=== PATIENT | male | born 1945 | race Hispanic/Latino ===

== ENCOUNTER 2017-09-02 09:24 | Emergency (ER) | payer MEDICARE, OTHER ==
[2017-09-02] MEDS ORDERED: ACETAMINOPHEN 325 MG TAB ONE (09:40)
[2017-09-02] MEDS ORDERED: CYCLOBENZAPRINE HCL 10 MG TABLET ONE (09:40)
[2017-09-02] MEDS ORDERED: KETOROLAC TROMETHAMINE 30MG/ML ONE (11:44)
== END 2017-09-02 12:31 | disposition home or self-care (01) ==
LOC: EDH 09:24
DX: G44.209 Tension-type headache, unspecified, not intractable (principal); R25.2 Cramp and spasm; I10 Essential (primary) hypertension; I25.10 Atherosclerotic heart disease of native coronary artery without angina pectoris; Z87.891 Personal history of nicotine dependence
CPT/HCPCS: 70544; 70551; 96372; 99284; J1885

== ENCOUNTER 2018-06-04 06:23 | Emergency (ER) | payer OTHER ==
[2018-06-04 06:52] LABS: BASOPHILS % (AUTO) 0.7 % (0.0-5.0); EOSINOPHILS % (AUTO) 2.2 % (0.0-8.0); HEMATOCRIT 42.1 % (42-54); LYMPHOCYTES % (AUTO) 37.9 % (21.0-51.0); MEAN CORPUSCULAR HEMOGLOBIN 31.5 pg (27.0-33.0); MEAN CORPUSCULAR VOLUME 92.8 fL (79-99); MONOCYTES % (AUTO) 9.4 % (3.0-13.0); NEUTROPHILS % (AUTO) 49.8 % (40.0-77.0); NUCLEATED RED BLOOD CELLS 0.1 % (0.0-0.19); PLATELET COUNT (AUTO) 238 K/uL (130-400); RED BLOOD CELL COUNT(AUTO) 4.54 MIL/uL (4.50-6.20); RED CELL DISTRIBUTION WIDTH 14.2 % (11.0-15.5); WHITE BLOOD COUNT (AUTO) 6.9 K/uL (4.8-10.8)
[2018-06-04 06:59] LABS: CREATININE 0.8 mg/dL (0.5-1.5); POTASSIUM 4.1 mmol/L (3.5-5.1)
[2018-06-04 07:06] LABS: ALBUMIN 3.5 g/dL (3.5-5.0); BILIRUBIN,TOTAL 0.5 mg/dL (0.2-1.0); TOTAL PROTEIN, SERUM 7.1 g/dL (6.0-8.3)
[2018-06-04 07:10] LABS: CREATINE KINASE, TOTAL 224 U/L (21-232); MYOGLOBIN 71 ng/mL (10-92); TROPONIN I < 0.04 ng/mL (0.00-0.06)
[2018-06-04] MEDS ORDERED: SODIUM CHLORIDE 0.9% 1000ML 1,000 ML IV ONE (07:27)
[2018-06-04] MEDS ORDERED: MORPHINE SULFATE 2 MG/ML 1ML SYG ONE (08:02)
[2018-06-04] MEDS ORDERED: ONDANSETRON HCL 4 MG/2 ML VIAL ONE (08:02)
[2018-06-04] MEDS ORDERED: KETOROLAC TROMETHAMINE 15MG/ML ONE (09:27)
[2018-06-04] MEDS ORDERED: METHYLPREDNISOLONE SOD SUCC 125MG/2ML VIAL ONE (09:27)
== END 2018-06-04 10:45 | disposition home or self-care (01) ==
LOC: EDH 06:23
DX: R42 Dizziness and giddiness (principal); R51 Headache; M54.2 Cervicalgia; I25.10 Atherosclerotic heart disease of native coronary artery without angina pectoris; I10 Essential (primary) hypertension; E11.9 Type 2 diabetes mellitus without complications
CPT/HCPCS: 36415; 70450; 80053; 82550; 83874; 84484; 85025; 93005; 96361; 96374; 96375; 99285; J1885; J2405; J2930; J7030

== ENCOUNTER → 2022-12-23 | Outpatient (CLI) | payer OTHER ==
[~2022-12-23] MED LIST: IOHEXOL 350 MG/ML 100ML INFUS..BTL IV ONE
== END | disposition home or self-care (01) ==
LOC: RAH 10:00
PROVIDERS: ATTEND Urology
DX: N20.0 Calculus of kidney (principal); R31.29 Other microscopic hematuria; Z98.890 Other specified postprocedural states
CPT/HCPCS: 74178; Q9967 ×2

== ENCOUNTER → 2023-01-11 | Outpatient (CLI) | payer OTHER | END | disposition home or self-care (01) | LOC: RAH 08:56 | PROVIDERS: ATTEND Urology | DX: N20.0 Calculus of kidney (principal) | CPT/HCPCS: 74018; 76100 ==

== ENCOUNTER 2025-07-06 12:31 | Emergency (ER) | payer OTHER ==
[~2025-07-06] VITALS: Ht 167.6 cm; Wt 102.1 kg
[~2025-07-06 12:31] MED LIST changes: +ASPI-1026 PO; -IOHEXOL 350 MG/ML 100ML INFUS..BTL IV ONE; +LISI1TAB49 PO; +Psyllium Seed PO; +ROSU5TAB51 PO; +TAMS-55 PO; +TRAZ-253 PO
[2025-07-06 13:03] LABS: IMMATURE GRANULOCYTE ABSOLUTE 0.02 K/uL (0-1); NUCLEATED RED BLOOD CELLS 0.0 % (0.0-0.19); PLATELET COUNT (AUTO) 196 K/uL (130-400); RED BLOOD CELL COUNT(AUTO) 4.65 MIL/uL (4.50-6.20); RED CELL DISTRIBUTION WIDTH 14.5 % (11.0-15.5); WHITE BLOOD COUNT (AUTO) 8.8 K/uL (4.8-10.8)
[2025-07-06 13:09] LABS: CREATININE 0.8 mg/dL (0.5-1.3); GLOMERULAR FILTR. RATE CALC 89.0 mL/min (>90); GLUCOSE,RANDOM 203.0 mg/dL (70-105); SODIUM SERUM 137.0 mmol/L (136-145); UREA NITROGEN, BLOOD 19.0 mg/dL (7-18)
--- NOTE | 2025-07-06 13:41 | ERN ---
General Chief Complaint: Other Problems Stated Complaint: LUMP LT FACE Time Seen by MD: 12:33 Source: patient History of Present Illness Initial Comments Patient is a an 80-year-old male coming in to be evaluated for multiple complaints. Patient noticed that he had a swelling in the left side of the cheek long with the as he states he felt tingling in his both hands. The ting ling then converted to itchiness. Allergies: Coded Allergies: No Known Drug Allergies (Unverified Allergy, Unknown, 06/23/16) Home Meds Active Scripts [Psyllium Seed] 1 TBS/PACKET PACKET No Conflict Check, 1 TBS PO DAILYLUNCH, #30 PACKET 0 Refills Prov:RON SALES 04/17/23 Trazodone HCl (Desyrel) 50 Mg Tab, 25 MG PO HS PRN for INSOMNIA/SLEEP, #30 TAB Prov:RON SALES 04/17/23 Aspirin (Aspirin) 325 Mg Tablet, 325 MG PO DAILY, #30 TAB Prov:RON SALES 04/17/23 Reported Medications Lisinopril/Hydrochlorothiazide (Lisinopril-Hctz 10-12.5 mg Tab) 1 Each Tablet, 1 TAB PO BID 04/16/23 Rosuvastatin Calcium (Rosuvastatin Calcium) 5 Mg Tablet, 1 TAB PO DAILY 04/16/23 Tamsulosin HCl (Flomax) 0.4 Mg Cap.er.24h, 1 CAP PO HS 04/16/23 Past Medical History Past Medical History: High Cholesterol, Hypertension Past Surgical History: None Social History Social History: Negative, Lives with family ROS Dictation CONSTITUTIONAL: No chills, no fever, no weakness, no diaphoresis, no malaise. HEAD/FACE: No signs of trauma. Left side swelling EENT: No eye pain, no blurred vision, no tearing, no double vision, no ear pain, no ear discharge, no nose pain, no nasal congestion, no throat pain, no throat swelling, no mouth pain. RESPIRATORY: No cough, no orthopnea, no SOB, no stridor, no wheezing. CARDIOVASCULAR: No chest pain, no edema, no palpitations, no syncope. GASTROINTESTINAL/ABDOMINAL: No abdominal pain, no constipation, no diarrhea, no nausea, no vomiting. GENITOURINARY: No abnormal discharge, no dysuria, no frequent urination, no hematuria. No complaints of pain in the genitals. MUSCULOSKELETAL: No back pain, no gout, no joint pain, no joint swelling, no muscle pain, no muscle stiffness, no neck pain. INTEGUMENTARY: No change in color, no change in hair/nails, no dryness, no lesion, no lumps, no rash. NEUROLOGICAL/PSYCH: No anxiety, not depressed, no emotional problem, no headache, no numbness, no pre-existing deficit, no history of seizures, no tremors, no weakness. HEMATOLOGIC/LYMPHATIC: Not anemic, no history of blood clots, no apparent bleeding, no bruising, glands not swollen. All Systems Negative, Except as Noted. Physical Exam Physical Exam Dictation VITAL SIGNS: Reviewed. GENERAL APPEARANCE: Alert, oriented x3, no acute distress, obese. HEAD AND FACE: Non-traumatic. Left parotid gland swelling EYES: PERRL, pink conjunctivas, eyelid no trauma, anterior chamber clear. EARS: Pinnas intact and no signs of trauma or erythema. Ear canals clear and no discharge. TMs no erythema. NOSE: No discharge, no bleeding. OROPHARYNX: Mouth normal, teeth no caries, tongue pink. Pharynx clear, no erythema. Tonsils no exudates, no abscesses noted. Mucous membrane moist. NECK: Supple, non-tender, no thyromegaly, no masses, no JVD, no bruits. BREAST: Deferred. CHEST: No tenderness, no crepitus, no paradoxical movement, no retractions. LUNGS: Clear, well-ventilated, symmetric, no rales, no wheezing, no rhonchi, no stridor, good breath sounds bilaterally. HEART: Regular rate, regular rhythm, no murmur, no gallops. VASCULAR: No peripheral edema. ABDOMEN: Soft, positive bowel sounds, nondistended, no guarding, nontender, no rebound, no masses no hepatomegaly, no splenomegaly, no Waters's sign, no hernias. RECTAL: Deferred. GENITAL: Deferred. NEUROLOGICAL: Normal speech, gross motor function intact, gross sensory function intact. MUSCULOSKELETAL: Neck nontender, full range of motion, back nontender, full range of motion. EXTREMITIES: Nontender, full range of motion. SKIN: Color pink, dry, no turgor, no rash, no lacerations, no abrasions, no contusions. LYMPHATICS: Deferred. Results Laboratory and Microbiology Lab and Micro Result Laboratory Tests Test 07/06/25 12:54 White Blood Count 8.8 K/uL (4.8-10.8) Red Blood Count 4.65 MIL/uL (4.50-6.20) Hemoglobin 14.2 g/dL (14.0-18.0) Hematocrit 43.5 % (42-54) Mean Corpuscular Volume 93.5 fL (79-99) Mean Corpuscular Hemoglobin 30.5 pg (27.0-33.0) Mean Corpuscular Hemoglobin Concent 32.6 g/dL (32.0-36.0) Red Cell Distribution Width 14.5 % (11.0-15.5) Platelet Count 196 K/uL (130-400) Mean Platelet Volume 11.1 fL (7.5-10.5) H Immature Granulocyte % (Auto) 0.2 % (0-1) Neutrophils (%) (Auto) 66.9 % (40.0-77.0) Lymphocytes (%) (Auto) 22.2 % (21.0-51.0) Monocytes (%) (Auto) 8.8 % (3.0-13.0) Eosinophils (%) (Auto) 1.6 % (0.0-8.0) Basophils (%) (Auto) 0.3 % (0.0-5.0) Neutrophils # (Auto) 5.9 K/uL (1.8-7.7) Lymphocytes # (Auto) 2.0 K/uL (1.0-4.8) Monocytes # (Auto) 0.8 K/uL (0.1-1.0) Eosinophils # (Auto) 0.14 K/uL (0.00-0.70) Basophils # (Auto) 0.03 K/uL (0.00-0.20) Absolute Immature Granulocyte (auto 0.02 K/uL (0-1) Nucleated Red Blood Cells 0.0 % (0.0-0.19) Sodium Level 137 mmol/L (136-145) Potassium Level 4.1 mmol/L (3.5-5.1) Chloride Level 103 mmol/L (101-111) Carbon Dioxide Level 28 mmol/L (21-32) Blood Urea Nitrogen 19 mg/dL (7-18) H Creatinine 0.8 mg/dL (0.5-1.3) Glomerular Filtration Rate Calc 89 mL/min (>90) Random Glucose 203 mg/dL (70-105) H Total Calcium 9.3 mg/dL (8.5-10.1) Labs Reviewed?: Yes MDM MDM: Differential diagnosis: Mumps, left facial swelling, lymphangitis, Rationale: Tests considered and ordered secondary to shared decision making include: Previous outside records reviewed: Old ER visits. Risk of complication and/or morbidity or mortality of patient management: None Medications-Per medication reconciliation Need for hospitalization: Patient does not meet criteria for hospitalization. Need for emergency major/minor surgery: No There are no social concerns with this patient. Patient is a an 8-year-old gentleman coming in complaining of arm burning. Glucose elevated. Patient will be diagnosed with a diabetic neuropathy as well as left-sided mumps. Mumps antibodies we will be sent. Patient was educated on proper follow up with the PCP for ongoing evaluation and management. ED Course Orders Procedure Category Date Status Time Cbc With Differential LAB 07/06/25 Complete 12:47 Basic Metabolic Panel LAB 07/06/25 Complete 12:47 Us Soft Tissue Head US 07/06/25 Taken 12:47 Mumps Virus Igm LAB 07/06/25 Verified Antibody 13:56 Mumps Virus Igg LAB 07/06/25 Verified Antibody 13:56 Vital Signs Date Time Temp Pulse Resp B/P (MAP) Pulse Ox O2 Delivery O2 Flow Rate FiO2 07/06/25 12:33 98.1 74 18 143/96 97 DX & DISP Disposition: Discharge Departure Impression: Primary Impression: Diabetic neuropathy Additional Impression: Lymphangitis Condition: Stable Additional Instructions: FOLLOW-UP WITH PRIMARY CARE PROVIDER IN 1 TO 2 DAYS. TAKE MEDICATIONS DIRECTED HERE IN THE EMERGENCY ROOM. OKAY TO CONTINUE HOME MEDICATIONS UNLESS OTHERWISE DISCUSSED DURING YOUR VISIT IN THE EMERGENCY ROOM TODAY. RETURN TO YOUR NEAREST EMERGENCY ROOM IF SYMPTOMS WORSEN OR IF THERE IS NO IMPROVEMENT. CALL 911 IF YOU NEED IMMEDIATE ASSISTANCE. TAKE TYLENOL [id number] NEEDED AND IF NO CONTRAINDICATIONS ARE PRESENT. INCREASE ORAL HYDRATION. A WOUND CULTURE OR URINE CULTURE WAS ORDERED HERE IN THE EMERGENCY ROOM DEPARTMENT PLEASE FOLLOW-UP WITH PRIMARY CARE PROVIDER AND ADVISE THEM TO GET REPORTS FROM OUR FACILITY. IF YOU HAD ANY SG WRAP/SPLINTS THAT WERE APPLIED HERE, PLEASE DO NOT REMOVE THEM UNTIL YOU SEE YOUR PRIMARY CARE OR SPECIALTY. Referrals: Referrals: JADEN LEE M.D. (PCP) Time of Disposition: 13:58 WILNER FAUSTIN MD Jul 06, 2025 13:40
[2025-07-06 14:06] VITALS: BP 148/84; PULSE 87; RESP 18; TEMP 98.5; O2SAT 97
--- NOTE | 2025-07-06 14:42 | HMCIMG ---
EXAM: Ultrasound soft tissue neck HISTORY: Left facial swelling COMPARISON: None TECHNIQUE: Grayscale and color Doppler images of the soft tissue neck FINDINGS: Hypoechoic lesion seen adjacent to the left parotid gland measuring 1.4 x 1.7 x 1.1 cm with no significant internal vascular flow. Few or smaller lymph nodes noted. IMPRESSION: Hypoechoic lesion seen adjacent to the parotid gland may represent a lymph node versus primary parotid lesion. Suggest fine-needle aspiration. /Faiza
[2025-07-10 00:09] LABS: MUMPS VIRUS IGM ANTIBODY <0.80 AU (0.00-0.79)
== END 2025-07-06 14:08 | disposition home or self-care (01) ==
LOC: EDH 12:31
DX: E11.40 Type 2 diabetes mellitus with diabetic neuropathy, unspecified (principal); I89.1 Lymphangitis; E78.00 Pure hypercholesterolemia, unspecified; I10 Essential (primary) hypertension; Z79.82 Long term (current) use of aspirin; Z79.899 Other long term (current) drug therapy
CPT/HCPCS: 36415; 76536; 80048; 85025; 86735; 99284